=== PATIENT | male | born 1955 | race Caucasian/White ===

== ENCOUNTER 2025-01-05 13:08 | Outpatient (CLI) | payer OTHER, SELFPAY ==
--- NOTE | ~2025-01-05 | XR_ITS ---
XR shoulder LT min 2V 01/05/2025 13:38 Indication: Left shoulder pain Procedure: 4 views left shoulder Comparison: No prior studies for comparison. Findings: There is mild polyarticular osteoarthritis. There is evidence of calcific tendinopathy. No fracture, subluxation or dislocation. No soft tissue abnormality. No foreign body. Impression: 1: Mild polyarticular osteoarthritis with calcific tendinopathy. Reviewed, dictated and finalized at location B. Impression: 1: Mild polyarticular osteoarthritis with calcific tendinopathy.
--- OUTSIDE RECORDS SUMMARY | 2025-01-05 13:14 | XMS_ITS | Clinical Summary ---
Author Organization [facility] Address [address] [place] [address] Care Team Providers Care Director [employer]eron[employer] Name Role Phone Neal So MD Primary Care Provider [phone] Source Comments [facility],non-owned Affiliates and Associated Physician Practices is amultiple site organization consisting of ambulatory clinics and hospital sitesin [place], [place], [place] and [place]. This disclosure is being madepursuant to the Care Everywhere program and may not contain all information available regarding this patient. Last updated 18.[facility] [employer] Allergies Active Allergy Reactions Criticality Noted Date Comments Penicillins Unknown 03/30/2020 Immunizations Immunization Administration Dates Next Due INFLUENZA VACCINE, QUADR. (F LUZONE; FLULAVAL; FLUARIX; AFLURIA QUADRIVALENT; 6MO+), 0.5 ML (IIV4) 03/30/2020 Social History Tobacco Use Types Packs/Day Years Used Date Smoking Tobacco: Never Assessed Sex and Gender Information Value Date Recorded Sex Assigned at Not on file Legal Sex Male 11:51 AM CDT Gender Identity Male 03/30/2020 11:58 AM CDT Sexual Orientation Not on file Plan of Treatment Health Maintenance Due Date Last Done Comments COLOGUARD (AGES 45-75) - COL ON CA SCREENING 1957 COLON MONITORING 1957 COLONOSCOPY - COLON CA SCREENING 1957 CT COLONOGRAPHY - COLON CA SCREENING 1957 Colorectal Cancer Screening 1957 FIT - COLON CA SCREENING 1957 FLEX SIG - COLON CA SCREENING 1957 LIPID TESTING 1957 HEPATITIS C SCREENING 01/23/1975 DTAP/TDAP/TD VACCINES (1 - Tdap) 01/28/1976 PNEUMOCOCCAL VACCINE 50+ (1 of 1 - PCV) 2007 ZOSTER VACCINE (1 of 2) 2007 COVID-19 VACCINE (1 - 2023-2 5 season) 2024 DEPRESSION SCREENING 06/22/2024 INFLUENZA VACCINE (#1) 2025 03/30/2020 Respiratory Syncytial Virus (RSV) Vaccine Pt: or over 60 yrs (1 - 1-dose 75+ series) 01/28/2032 HEPATITIS B VACCINE Aged Out No longe r eligible based on patient's age to complete this topic HIB VACCINE Aged Out No longer eligi ble based on patient's age to complete this topic HPV VACCINE Aged Out No longer eligi ble based on patient's age to complete this topic MENINGOCOCCAL (Group B) VACC INE SHARED DECISION-MAKING Aged Out No longer eligibl e based on patient's age to complete this topic MENINGOCOCCAL GROUPS A/C/Y/W VACCINE Aged Out No longer eligible b ased on patient's age to complete [place] [address] [facility] Care Teams Director [employer]eron[employer] Relationship Specialty Start Date End Date Neal So MD PCP - General Internal Medicine 03/30/20
--- OUTSIDE RECORDS SUMMARY | 2025-01-05 13:14 | XMS_ITS | Encounter Summary ---
Author Organization [facility] Address [address] [place] [address] Care Team Providers Care Paper Control Clerk Name Role Phone Neal So MD Primary Care Provider [phone] Tamica Santana RN Unavailable Unavaila ble Reason for Referral * Consultation (Routine) - Pending Review Specialty Diagnoses / Procedures Referred By Contac t Referred To Contact Orthopedic Surgery Diagnoses Acute pain of left shoulder Skyla Millan NP [address] [address] Phone: tel: fax: External Order Referral ID Status Reason Start Date Expiration Date Visits Requested Visits Authorized [id number] Pending Review Specialty Services Required 01/05/2025 02/04/2026 1 1 Question Answer Please select the performing region: External Order [[id number]] # of visits: 1 * Diagnostic Imaging (Routine) - Pending Review Specialty Diagnoses / Procedures Referred By Contac t Referred To Contact Diagnoses Acute pain of left shoulder Procedures XR Shoulder Left 2 or More Views Skyla Millan NP [address] [address] Phone: tel: fax: [address] [phone] Referral ID Status Reason Start Date Expiration Date V isits Requested Visits Authorized [id number] Pending Review 01/05/2025 02/04/2026 1 1 Reason for Visit * Reason Comments Shoulder Pain C/o pain for 3-4 day s. Encounter Details Date Type Department Care Team (Late st Contact Info) Description 01/05/2025 9:15 AM CDT Office Visit [facility] [address] [place] [id number] Skyla Millan NP [address] [facility] [address] [place], [place] [id number] Acute pain of left shoulder (Primary Dx); Type 2 diabetes mellitus without complication, without long-term current use of insulin (HCC); Essential hypertension Social History Tobacco Use Types Packs/Day Years Used Date Smoking Tobacco: Former Cigarettes Q uit: 1995 Smokeless Tobacco: Never Alcohol Use Standard Drinks/Week Comments Yes 0 (1 standard drink = 0.6 oz pur e alcohol) AUDIT-C Answer Date Recorded Q1: How often do you have a drink containing alc ohol? Monthly or less 09/12/2022 Q2: How many drinks containi ng alcohol do you have on a typical day when you are drinking? 1 or 2 09/12/2022 Frequency of Binge Drinking Not on file 08/21 PHQ-2 Answer Date Recorded PHQ-2 Total Score 0 08/06/2022 Personal Safety Answer Date Recorded Have you ever been in or are you currently in a harmful physical or emotional relationship or is someone making you feel afraid or unsafe? 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 Gender Identity Not on file Sexual Orientation Not on file documented as of this encounter Last Filed Vital Signs Vital Sign Reading Time Taken Comments Blood Pressure 134/78 01/05/2025 8:24 AM CDT Pulse 81 01/05/2025 8:24 AM CDT Temperature - - Respiratory Rate - - Oxygen Saturation 98% 01/05/2025 8:24 AM CDT Inhaled Oxygen Concentration - - Weight 98.4 kg (217 lb) 01/05/2025 8:24 AM CDT Height 180.3 cm (5' 11) 01/05/2025 8:24 AM CDT Body Mass Index 30.27 01/05/2025 8:24 AM CDT documented in this encounter Patient Instructions * Patient Instructions* Johanne Chavez - 01/05/2025 9:15 AM CDT [facility]: [phone] documented in this encounter Plan of Treatment Scheduled Orders Name Type Priority Associated Diagnoses Orde r Schedule XR Shoulder Left 2 or More Views Imaging Schedule Routine, Read Routine (OP Routine) Acute pain of left shoulder Expected: 01/05/2025, Expires: 01/05/2026 Scheduled Procedures Name Priority Associated Diagnoses Date/Ti me COLONOSCOPY Low hemoglobin and low hematocrit Screening for malignant neoplasm of colon declined ESOPHAGOGASTRODUODENOSCOPY Low hemoglobin and low hematocrit Screening for malignant neoplasm of colon declined Scheduled Referrals Name Type Priority Associated Diagnoses Order Schedule Ambulatory referral to Orthopedic Shoulder Outpatient Referral Routine Acute pain of left shoulder 1 Occurrences starting 01/05/2025 until 01/05/2026 documented as of this encounter Visit Diagnoses Diagnosis Acute pain of left shoulder- Primary Type 2 diabetes mellitus without complication, without long-term current use of insulin (HCC) Essential hypertension Unspecified essential hypertension documented in this encounter Care Teams Paper Control Clerk Relationship Specialty Start Date End Date Neal So MD PCP - General Internal Medicine 06/29/20 Tamica Santana, wellness manager Failure Coordinator 04/20/24 documented as of this encounter
--- OUTSIDE RECORDS SUMMARY | 2025-01-05 13:14 | XMS_ITS | Referral Summary ---
Author Organization [facility] [address] Address [address] [place] [address] Care Team Providers Care Debt Collection Specialist Name Role Phone Neal So MD Primary Care Provider [phone] Tamica Santana RN Unavailable Unavaila ble Encounters Date Type Department Care Team Description 01/05/2025 9:15 AM CDT Office Visit [facility] [address] [facility] [address] [facility] [address] [place] [id number] Skyla Millan NP Acute pain of left shoulder (Primary Dx); Type 2 diabetes mellitus without complication, without long-term current use of insulin (HCC); Essential hypertension 10/24/2024 11:00 AM CDT Office Visit [facility] [address] [facility] [address] [place] [address] [place] [address] Devonte Story NP PAD (peripheral artery disease) (Primary Dx); Bilateral carotid bruits; Renal artery stenosis 10/24/2024 7:30 AM CDT - 10/24/2024 11:59 PM CDT Hospital Encounter [facility] [place] [address] Renal artery stenosis Discharge Disposition: Discharge to home or self care 10/24/2024 10:15 AM CDT Ancillary Procedure [facility] [address] [facility] [address] [place] [address] [place] [address] Bilateral carotid bruits; Atherosclerosis of [place] arteries of extremities with intermittent claudication, bilateral legs from Last 3 Months Allergies Active Allergy Reactions Criticality Noted Date Comments Penicillin V Potassium Rash Medium 04/01/2019 Penicillins Rash,Unknown Medium 03/26/2020 Medications aspirin 81 mg enteric coated tablet Take by mouth daily 04/01/20 19 Active UNABLE TO FIND Iron infusions unsure frequency Active omeprazole (PriLOSEC) 20 mg capsule TAKE 1 CAPSULE BY MOUTH EVERY DAY 90 capsule 1 05/28/20 23 Active metFORMIN (GLUCOPHAGE) 500 mg tablet TAKE 2 TABLETS BY MOUTH TWICE A DAY WITH FOOD 360 tablet 3 02/08/20 24 Active hydroCHLOROthi azide (HYDRODIURIL) 25 mg tablet TAKE 1 TABLET (25 MG TOTAL) BY MOUTH DAILY. 90 tablet 3 02/08/20 24 Active ALPRAZolam (XANAX) 0.25 mg tabletIndicati ons:anxiety One Tablet every day prn anxiety 30 tablet 04/25/20 24 Active valsartan (DIOVAN) 160 mg tablet Take 1 tablet (160 mg total) by mouth daily 90 tablet 3 05/05/20 24 Active blood-glucose meter kit Use to test blood glucose once daily 1 kit 05/13/20 24 Active lancets misc Use to test blood glucose once daily 100 each 3 05/13/20 24 Active blood glucose diagnostic (glucose blood) strip Use to test blood glucose once daily 100 each 3 05/13/20 24 025 Active cilostazoL (PLETAL) 50 mg tablet TAKE 1 TABLET BY MOUTH TWICE A DAY 180 tablet 3 06/06/20 24 Active atorvastatin (LIPITOR) 20 mg tablet TAKE 1 TABLET BY MOUTH EVERY DAY 90 tablet 2 06/06/20 24 Active amLODIPine (NORVASC) 10 mg tablet TAKE 1 TABLET BY MOUTH EVERY DAY 90 tablet 2 11/29/19 25 Active semaglutide (Ozempic) 1 mg/dose (4 mg/3 mL) pen injector injection INJECT 1 MG UNDER THE SKIN EVERY 7 DAYS 3 mL 1 12/23/19 25 Active semaglutide (Ozempic) 1 mg/dose (4 mg/3 mL) pen injector injection INJECT 1 MG UNDER THE SKIN EVERY 7 DAYS 9 mL 1 07/16/19 25 025 Discontinued Active Problems Problem Noted Date Diagnosed Date Angiodysplasia of intestinal tract 10/02/2023 Iron deficiency anemia 12/12/2022 Renal artery stenosis 09/01/2022 Atherosclerosis of artery of both lower extremit ies 09/01/2022 Bilateral carotid bruits 09/01/2022 Murmur 08/06/2022 Essential hypertension 07/26/2020 Assessment & Plan (07/26/2020 8:43 AM MOTHER'S HELPER): Blood pressure at target by my exam will continue present Rx Type 2 diabetes mellitus wit hout complication, without long-term current use of insulin 07/26/2020 Assessment & Plan (07/26/2020 8:43 AM MOTHER'S HELPER): Blood sugar seems to be doing well will check A1c Mixed hyperlipidemia 07/26/2020 Assessment & Plan (07/26/2020 8:43 AM MOTHER'S HELPER): Most recent lipid panel was excellent. Continue present Rx PAD (peripheral artery disease) 07/26/2020 Assessment & Plan (07/26/2020 8:43 AM MOTHER'S HELPER): On statins and anti-platelet therapy. Blood pressure and cholesterol are at target. Will have him undergo these studies as outlined by his Cardiology Low testosterone 07/26/2020 Assessment & Plan (07/26/2020 8:43 AM MOTHER'S HELPER): Check testosterone level, PSA, CBC. Immunizations Immunization Administration Dates Next Due Influenza, Quad, Adjuvantated, Intramuscular Influenza, Quadrivalent, Martha l Culture-based MDCK, Preservative Free, Antibiotic Free, Intramuscular 04/17/2022 Influenza, Quadrivalent, Spl it, Preservative Free, Intramuscular 03/30/2020,03/30/2020 Influenza, Trivalent, High D ose, Split, Preservative Free, Intramuscular 04/18/2024 Moderna SARS-CoV-2 Monovalent Vaccination (12+ Y RS) 07/19/2020 ZOSTER Recombinant 07/16/2022,05/13/2022 Social History Tobacco Use Types Packs/Day Years Used Date Smoking Tobacco: Former Cigarettes Q uit: 1995 Smokeless Tobacco: Never Tobacco Cessation:Counseling Given: Not Answered Alcohol Use Standard Drinks/Week Comments Yes 0 [...] on file Legal Sex Male 1:19 PM MOTHER'S HELPER Gender Identity Not on file Sexual Orientation Not on file Last Filed Vital Signs Vital Sign Reading Time Taken Comments Blood Pressure 134/78 01/05/2025 8:24 AM CDT Pulse 81 01/05/2025 8:24 AM CDT Temperature 36.5 C (97.7 F) 12/17/2023 9:20 AM CDT Respiratory Rate 18 12/17/2023 9:20 AM CDT Oxygen Saturation 98% 01/05/2025 8:24 AM CDT Inhaled Oxygen Concentration - - Weight 98.4 kg (217 lb) 01/05/2025 8:24 AM CDT Height 180.3 cm (5' 11) 01/05/2025 8:24 AM CDT Body Mass Index 30.27 01/05/2025 8:24 AM CDT Plan of Treatment Scheduled Procedures Name Priority Associated Diagnoses Date/Ti me COLONOSCOPY Low hemoglobin and low hematocrit Screening for malignant neoplasm of colon declined ESOPHAGOGASTRODUODENOSCOPY Low hemoglobin and low hematocrit Screening for malignant neoplasm of colon declined Procedures Procedure Name Priority Date/Time Associated Diagnosis Comments US ARTERIAL DOPPLER LOWER EXTREMITY BILATERAL Schedule Routine, Read Routine (OP Routine) 10/24/2024 11:44 AM CDT Atherosclerosis of [place] arteries of extremities with intermittent claudication, bilateral legs US CAROTIDS DUPLEX BILATERAL Schedule Routine, Read Routine (OP Routine) 10/24/2024 11:44 AM CDT Bilateral carotid bruits US RENAL LIMITED W COMPLETE RENAL DOPPLER (C) Schedule Routine, Read Routine (OP Routine) 10/24/2024 9:34 AM CDT Renal artery stenosis COMPREHENSIVE METABOLIC PANEL Routine 07/12/2024 7:25 AM MOTHER'S HELPER Type 2 diabetes mellitus without complication, without long-term current use of insulin (HCC) HEMOGLOBIN A1C Routine 07/12/2024 7:25 AM MOTHER'S HELPER Type 2 diabetes mellitus without complication, without long-term current use of insulin (HCC) ALBUMIN CREATININE RATIO, URINE Routine 07/12/2024 7:25 AM MOTHER'S HELPER Type 2 diabetes mellitus without complication, without long-term current use of insulin (HCC) LIPID PANEL Routine 12/30/2023 10:16 AM CDT Mixed hyperlipidemia PSA SCREEN Routine 12/30/2023 10:16 AM CDT Prostate cancer screening COLONOSCOPY 09/12/2022 4:43 PM CDT from Last 3 Months or Most Recently Relevant to Health Maintenance Results * US Carotids Duplex Bilateral (10/24/2024 11:44 AM CDT) Anatomical Region Laterality Modality Vascular Bilateral Ultrasound 10/24/2024 9:58 AM CDT Narrative 10/24/2024 7:[address] [facility] - Department of Vascular Surgery, Vascular Laboratory [address] [place] [address] Carotid Duplex Ultrasound Report Patient Name: ERNST LIMA : 1955 (69y 8m) Study Date: 10/24/2024 9:58:36 AM Gender: M Tech: IA Location: [facility] Ref Provider: DEVONTE STORY Quality: Adequate Order Provider: DEVONTE STORY PROCEDURES: Carotid Report: Carotid duplex examination of the extracranial arteries was performed using 2D, color and spectral Doppler. INDICATIONS: R09.89 Other specified symptoms and signs involving the circulatory and respiratory systems. MEASUREMENTS: Right Value Units Left Value Units RT Prox CCA PSV 63 cm/sec LT Prox CCA PSV 70 cm/sec RT Prox CCA EDV 18 cm/sec LT Prox CCA EDV 18 cm/sec RT Distal CCA PSV 66 cm/sec LT Distal CCA PSV 76 cm/sec RT Distal CCA EDV 15 cm/sec LT Distal CCA EDV 16 cm/sec RT Prox ICA PSV 114 cm/sec LT Prox ICA PSV 80 cm/sec RT Prox ICA EDV 31 cm/sec LT Prox ICA EDV 22 cm/sec RT Mid ICA PSV 123 cm/sec LT Mid ICA PSV 97 cm/sec RT Mid ICA EDV 28 cm/sec LT Mid ICA EDV 28 cm/sec RT Distal ICA PSV 79 cm/sec LT Distal ICA PSV 68 cm/sec RT Distal ICA EDV 22 cm/sec LT Distal ICA EDV 28 cm/sec RT ECA Prx PSV 132 cm/sec LT ECA Prx PSV 190 cm/sec RT ICA/CCA 1.87 ratio LT ICA/CCA 1.28 ratio RT VERT PSV 54 cm/sec LT VERT PSV 42 cm/sec FINDINGS: Performing Heat Curer: Caren Wagner RVT. Rt Common Carotid Artery: The plaque in the right CCA appears to be heterogeneous and smooth. Atherosclerotic changes of the right common carotid artery with no hemodynamically significant Doppler findings. Rt Internal Carotid Artery: The plaque in the right internal carotid artery appears to be heterogeneous, calcified and smooth. Atherosclerotic changes of the right internal carotid artery without hemodynamically significant Doppler findings. <50% stenosis. Rt External Carotid Artery: Patent right external carotid artery with evidence of atherosclerotic disease present. Rt Vertebral Artery: The right vertebral artery is patent with antegrade flow. Lt Common Carotid Artery: The plaque in the left CCA appears to be heterogeneous and smooth. Atherosclerotic changes of the left common carotid artery with no hemodynamically significant Doppler findings. Lt Internal Carotid Artery: The plaque in the left internal carotid artery appears to be heterogeneous, calcified and smooth. Atherosclerotic changes of the left internal carotid artery without hemodynamically significant Doppler findings. <50% stenosis. Lt External Carotid Artery: Patent left external carotid artery with evidence of atherosclerotic disease present. Lt Vertebral Artery: The left vertebral artery is patent with antegrade flow. CONCLUSIONS: 1. The right internal carotid artery disease is consistent with a less than 50% stenosis. 2. The left internal carotid artery disease is consistent with a less than 50% stenosis. 3. No evidence of hemodynamically significant stenosis in the common carotid artery bilaterally. 4. Normal, antegrade flow is noted in bilateral vertebral arteries. HISTORY: Bruit. Hypertension, Diabetes mellitus. PREVIOUS STUDIES: Previous carotid ultrasound on 11-02-23, <50 bilaterally. DISCLAIMER: The study images and the final report will be retained in the patient chart by the Vascular Laboratory for the legally required time period. This chart constitutes the legal record of any testing performed. ATTESTATION: I have reviewed and interpreted the pertinent images and measurements of this study. I attest to the conclusions in the final report that is provided above. Electronically Signed By: Kailash Islas MD FACS 10/24/2024 7:21:51 PM CDT Procedure Note Kailash Islas MD - 10/24/2024 [facility] - Department of Vascular Surgery,Vascular Laboratory [address] [place] [id number] Carotid Duplex Ultrasound Report Patient Name: ERNST LIMA : 1955 (69y 8m) Study Date: 10/24/2024 9:58:36 AM Gender: M Tech: IA Location: [facility] Ref Provider: DEVONTE STORY Quality: Adequate Order Provider: DEVONTE STORY PROCEDURES: Carotid Report: Carotid duplex examination of the extracranial arterieswas performed using 2D, color and spectral Doppler. INDICATIONS: R09.89 Other specified symptoms and signs involving the circulatory andrespiratory systems. MEASUREMENTS: Right Value Units Left Value Units RT Prox CCA PSV 63 cm/sec LT Prox CCA PSV 70 cm/sec RT Prox CCA EDV 18 cm/sec LT Prox CCA EDV 18 cm/sec RT Distal CCA PSV 66 cm/sec LT Distal CCA PSV 76 cm/sec RT Distal CCA EDV 15 cm/sec LT Distal CCA EDV 16 cm/sec RT Prox ICA PSV 114 cm/sec LT Prox ICA PSV 80 cm/sec RT Prox ICA EDV 31 cm/sec LT Prox ICA EDV 22 cm/sec RT Mid ICA PSV 123 cm/sec LT Mid ICA PSV 97 cm/sec RT Mid ICA EDV 28 cm/sec LT Mid ICA EDV 28 cm/sec RT Distal ICA PSV 79 cm/sec LT Distal ICA PSV 68 cm/sec RT Distal ICA EDV 22 cm/sec LT Distal ICA EDV 28 cm/sec RT ECA Prx PSV 132 cm/sec LT ECA Prx PSV 190 cm/sec RT ICA/CCA 1.87 ratio LT ICA/CCA 1.28 ratio RT VERT PSV 54 cm/sec LT VERT PSV 42 cm/sec FINDINGS: Performing Heat Curer: Caren Wagner RVT. Rt Common Carotid Artery: The plaque in the right CCA appears to beheterogeneous and smooth. Atherosclerotic changes of the right common carotid artery with no hemodynamically significant Doppler findings. Rt Internal Carotid Artery: The plaque in the right internal carotidartery appears to be heterogeneous, calcified and smooth. Atherosclerotic changes of the rightinternal carotid artery without hemodynamically significant Doppler findings. <50%stenosis. Rt External Carotid Artery: Patent right external carotid artery withevidence of atherosclerotic disease present. Rt Vertebral Artery: The right vertebral artery is patent with antegradeflow. Lt Common Carotid Artery: The plaque in the left CCA appears to beheterogeneous and smooth. Atherosclerotic changes of the left common carotid artery with nohemodynamically significant Doppler findings. Lt Internal Carotid Artery: The plaque in the left internal carotid arteryappears to be heterogeneous, calcified and smooth. Atherosclerotic changes of the leftinternal carotid artery without hemodynamically significant Doppler findings. <50%stenosis. Lt External Carotid Artery: Patent left external carotid artery withevidence of atherosclerotic disease present. Lt Vertebral Artery: The left vertebral artery is patent with antegradeflow. CONCLUSIONS: 1. The right internal carotid artery disease is consistent with a lessthan 50% stenosis. 2. The left internal carotid artery disease is consistent with a less than50% stenosis. 3. No evidence of hemodynamically significant stenosis in the commoncarotid artery bilaterally. 4. Normal, antegrade flow is noted in bilateral vertebral arteries. HISTORY: Bruit. Hypertension, Diabetes mellitus. PREVIOUS STUDIES: Previous carotid ultrasound on 11-02-23, <50 bilaterally. DISCLAIMER: The study images and the final report will be retained in the patientchart by the Vascular Laboratory for the legally required time period. This chartconstitutes the legal record of any testing performed. ATTESTATION: I have reviewed and interpreted the pertinent images and measurements ofthis study. I attest to the conclusions in the final report that is provided above. Electronically Signed By: Kailash Islas MD, FACS 10/24/2024 7:21:51 PM CDT us Devonte Story NP IMG US PROCEDURES Final Result * US Arterial Doppler Lower Extremity Bilateral (10/24/2024 11:44 AM CDT) Anatomical Region Laterality Modality Vascular Bilateral Ultrasound 10/24/2024 10:2 1 AM CDT Narrative 10/24/2024 7:19 PM CDT [facility] - Department of Vascular Surgery, Vascular Laboratory [address] [place] [address] Lower Extremity Arterial Doppler Report Patient Name: ERNST LIMA : 1955 Study Date: 10/24/2024 10:21:00 AM Gender: M Tech: Caren Wagner RVT Location: [facility] Provider: DEVONTE STORY Quality: Adequate Order Provider: DEVONTE STORY PROCEDURES: Arterial Report: Bilateral lower extremity arterial Doppler exam at rest. INDICATIONS: I70.213 Atherosclerosis of [place] arteries of extremities with intermittent claudication, bilateral legs. MEASUREMENTS: Right Value Units Left Value Units Rt Brachial Pressure 153 mmHg Lt Brachial Pressure 153 mmHg Rt COPS Pressure 127 mmHg Lt COPS Pressure 138 mmHg Rt DPA Pressure 122 mmHg Lt DPA Pressure 138 mmHg Rt 1st Digit Pressure 118 mmHg Lt 1st Digit Pressure 110 mmHg Rt PT COLIN Resting 0.83 Lt PT COLIN Resting 0.9 Rt AT COLIN Resting 0.8 Lt AT COLIN Resting 0.9 Rt Digit/Arm Index 0.77 Lt Digit/Arm Index 0.72 Right Value Units Left Value Units FINDINGS: Performing Heat Curer: Caren Wagner RVT. Right All Levels: The right common femoral, popliteal, posterior tibial and anterior tibial artery waveforms are multiphasic. Left All Levels: The left common femoral, popliteal, posterior tibial and anterior tibial artery waveforms are multiphasic. Right Digits: Normal right digit pressure and waveform. Left Digits: Normal left digit pressure and waveform. CONCLUSIONS: 1. The above listed right Ankle/Brachial Index at rest is consistent with moderate peripheral arterial disease - claudication (for reference, claudication range is 0.50 -0.89). 2. The above listed left Ankle/Brachial Index at rest is within normal limits (for reference, normal resting COLIN is 0.90 - 1.4; COLIN >1.4 due to non-compressible arteries is not diagnostic). 3. Bilateral Digit/Arm Indices are within normal limits (for reference, normal DEMOND is >0.6). 4. The left lower extremity arterial Doppler reveals multiphasic waveforms in all distributions above. No evidence of lower extremity arterial occlusive disease at rest on the left. 5. Unable to determine level of disease on the right lower extremity. HISTORY: Hypertension, Diabetes mellitus. PREVIOUS STUDIES: Previous study on 11-02-23 RT: 0.92 LT: 1.15. DISCLAIMER: The study images and the final report will be retained in the patient chart by the Vascular Laboratory for the legally required time period. This chart constitutes the legal record of any testing performed. ATTESTATION: I have reviewed and interpreted the pertinent images and measurements of this study. I attest to the conclusions in the final report that is provided above. Electronically Signed By: Kailash Islas MD FACS 10/24/2024 7:19:20 PM CDT Procedure Note Kailash Islas MD - 10/24/2024 [facility] - Department of Vascular Surgery,Vascular Laboratory [address] [place] [address] Lower Extremity Arterial Doppler Report Patient Name: ERNST LIMA : 1955 Study Date: 10/24/2024 10:21:00 AM Gender: M Tech: Caren Wagner [place] Location: [facility] Ref Provider: DEVONTE STORY Quality: Adequate Order Provider: DEVONTE STORY PROCEDURES: Arterial Report: Bilateral lower extremity arterial Doppler exam at rest. INDICATIONS: I70.213 Atherosclerosis of [place] arteries of extremities withintermittent claudication, bilateral legs. MEASUREMENTS: Right Value Units Left Value Units Rt Brachial Pressure 153 mmHg Lt Brachial Pressure 153 mmHg Rt COPS Pressure 127 mmHg Lt COPS Pressure 138 mmHg Rt DPA Pressure 122 mmHg Lt DPA Pressure 138 mmHg Rt 1st Digit Pressure 118 mmHg Lt 1st Digit Pressure 110 mmHg Rt PT COLIN Resting 0.83 Lt PT COLIN Resting 0.9 Rt AT COLIN Resting 0.8 Lt AT COLIN Resting 0.9 Rt Digit/Arm Index 0.77 Lt Digit/Arm Index 0.72 Right Value Units Left Value Units FINDINGS: Performing Heat Curer: Caren Wagner RVT. Right All Levels: The right common femoral, popliteal, posterior tibial and anterior tibialartery waveforms are multiphasic. Left All Levels: The left common femoral, popliteal, posterior tibial and anterior tibialartery waveforms are multiphasic. Right Digits: Normal right digit pressure and waveform. Left Digits: Normal left digit pressure and waveform. CONCLUSIONS: 1. The above listed right Ankle/Brachial Index at rest is consistent withmoderate peripheral arterial disease - claudication (for reference, claudicationrange is 0.50 -0.89). 2. The above listed left Ankle/Brachial Index at rest is within normallimits (for reference, normal resting COLIN is 0.90 - 1.4; COLIN >1.4 due tonon-compressible arteries is not diagnostic). 3. Bilateral Digit/Arm Indices are within normal limits (for reference,normal DEMOND is >0.6). 4. The left lower extremity arterial Doppler reveals multiphasic waveformsin all distributions above. No evidence of lower extremity arterial occlusivedisease at rest on the left. 5. Unable to determine level of disease on the right lower extremity. HISTORY: Hypertension, Diabetes mellitus. PREVIOUS STUDIES: Previous study on 11-02-23 RT: 0.92 LT: 1.15. DISCLAIMER: The study images and the final report will be retained in the patientchart by the Vascular Laboratory for the legally required time period. This chartconstitutes the legal record of any testing performed. ATTESTATION: I have reviewed and interpreted the pertinent images and measurements ofthis study. I attest to the conclusions in the final report that is provided above. Electronically Signed By: Kailash Islas MD [facility] 10/24/2024 7:19:20 PM CDT us Devonte Story THEATRICAL TROUPER IMG US PROCEDURES Final Result * US Renal Limited W Complete Renal Doppler (C) (10/24/2024 9:34 AM CDT) Anatomical Region Laterality Modality Kidney N/A Ultrasound 10/24/2024 9:41 AM CDT Impressions 10/24/2024 10:16 AM CDT 1. Elevated left renal artery velocity is noted on 2 of the last 3 Doppler examinations, consistent with renal artery stenosis. 2. Normal kidneys. No hydronephrosis. Dictated by: Raisa Becerril MD, MPH The radiology attending physician has personally reviewed this study, and had reviewed and/or edited this written report and agrees with it. Electronically signed by: Gavin Iglesias M.D. Narrative 10/24/2024 10:16 AM CDT EXAMINATION: 1. LIMITED RENAL SONOGRAM 2. RENAL DOPPLER (SONYA) HISTORY: 69-year-old male with history of left renal artery stenosis. COMPARISON: Multiple ultrasounds including 11/02/2023, 09/01/2022 and 09/12/2021 FINDINGS: COMPLETE RENAL SONOGRAM: Kidneys: The echogenicity of both kidneys is normal. The kidneys are normal in size. The right kidney measures 13.2 cm in length, and the left, 12.5 cm in length. There is no hydronephrosis in either kidney. Bladder: The urinary bladder is normal RENAL DOPPLER: Color Doppler and spectral analysis were used to evaluate the renal vasculature. No focal flow abnormalities were seen in the renal arteries on color Doppler. The peak systolic velocities at the origins of the right and left renal arteries and aorta were 99 cm/sec, 251 cm/sec, and 79 cm/sec, respectively. The absolute velocity of the left renal artery is elevated. The visualized portions of the right and left renal veins are patent. Procedure Note Gavin Iglesias MD - 10/24/2024 EXAMINATION: 1. LIMITED RENAL SONOGRAM 2. RENAL DOPPLER (SONYA) HISTORY: 69-year-old male with history of left renal artery stenosis. COMPARISON: Multiple ultrasounds including 11/02/2023, 09/01/2022 and 09/12/2021 FINDINGS: COMPLETE RENAL SONOGRAM: Kidneys: The echogenicity of both kidneys is normal. The kidneys are normal in size. The right kidney measures 13.2 cm in length, and the left, 12.5 cm in length. There is no hydronephrosis in either kidney. Bladder: The urinary bladder is normal RENAL DOPPLER: Color Doppler and spectral analysis were used to evaluate the renal vasculature. No focal flow abnormalities were seen in the renal arteries on color Doppler. The peak systolic velocities at the origins of the right and left renal arteries and aorta were 99 cm/sec, 251 cm/sec, and 79 cm/sec, respectively. The absolute velocity of the left renal artery is elevated. The visualized portions of the right and left renal veins are patent. IMPRESSION: 1. Elevated left renal artery velocity is noted on 2 of the last 3 Doppler examinations, consistent with renal artery stenosis. 2. Normal kidneys. No hydronephrosis. Dictated by: Raisa Becerril MD, MPH The radiology attending physician has personally reviewed this study, and had reviewed and/or edited this written report and agrees with it. Electronically signed by: Gavin Iglesias M.D. Devonte Story NP IMG US PROCEDURES Final Result * Albumin Creatinine Ratio, Urine (07/12/2024 7:25 AM MOTHER'S HELPER) Creatinine, ur 113 20 - 320 mg/dL [facility] Microalbumin, ur 1.3 See Note: mg/dL [facility] Comment: Reference Range: Reference Range Not established Microalbumin/creat ratio 12 <30 mg/g creat [facility] Comment: The ADA defines abnormalities in albumin excretion as follows: Albuminuria Category Result (mg/g creatinine) Normal to Mildly increased <30 Moderately increased 30-299 Severely increased > OR = 300 The ADA recommends that at least two of three specimens collected within a 3-6 month period be abnormal before considering a patient to be within a diagnostic category. Urine 07/12/2024 7:25 AM MOTHER'S HELPER 07/12/2024 7:25 AM MOTHER'S HELPER Skyla Millan NP LAB URINE ORDERABLES Final Re sult [facility] [address] [place] [address] * (ABNORMAL) Hemoglobin A1c (07/12/2024 7:25 AM MOTHER'S HELPER) Hgb A1C 6.7(H) <5.7 % of total Hgb [facility] Comment: For someone without known diabetes, a hemoglobin A1c value of 6.5% or greater indicates that they may have diabetes and this should be confirmed with a follow-up test. For someone with known diabetes, a value <7% indicates that their diabetes is well controlled and a value greater than or equal to 7% indicates suboptimal control. A1c targets should be individualized based on duration of diabetes, age, comorbid conditions, and other considerations. Currently, no consensus exists regarding use of hemoglobin A1c for diagnosis of diabetes for children. Blood 07/12/2024 7:25 AM MOTHER'S HELPER 07/12/2024 7:25 AM MOTHER'S HELPER us Skyla Millan NP LAB BLOOD ORDERABLES Final Re sult [facility] [address] [place] [address] * (ABNORMAL) Comprehensive metabolic panel (07/12/2024 7:25 AM MOTHER'S HELPER) Glucose 137(H) 65 - 99 mg/dL [facility] Comment: Fasting reference interval For someone without known diabetes, a glucose value >125 mg/dL indicates that they may have diabetes and this should be confirmed with a follow-up test. BUN 11 7 - 25 mg/dL [facility] Creatinine 0.77 0.70 - 1.35 mg/dL [facility] eGFR 98 > OR = 60 mL/min/1.7 3m2 [facility] BUN/creat ratio SEE NOTE: 6 - 22 (calc) [facility] Comment: Not Reported: BUN and Creatinine are within reference range. Sodium 134(L) 135 - 146 mmol/L [facility] Potassium, pl 3.9 3.5 - 5.3 mmol/L [facility] Chloride 95(L) 98 - 110 mmol/L [facility] CO2 28 20 - 32 mmol/L [facility] Calcium 9.3 8.6 - 10.3 mg/dL [facility] Protein, sr 7.4 6.1 - 8.1 g/dL [facility] Albumin 4.9 3.6 - 5.1 g/dL [facility] GLOBULIN 2.5 1.9 - 3.7 g/dL (calc) [facility] Alb/glob ratio 2.0 1.0 - 2.5 (calc) [facility] Bilirubin, total 0.4 0.2 - 1.2 mg/dL [facility] Alk phos 84 35 - 144 U/L [facility] AST 22 10 - 35 U/L [facility] ALT (SGPT) 30 9 - 46 U/L [facility] Blood 07/12/2024 7:25 AM MOTHER'S HELPER 07/12/2024 7:25 AM MOTHER'S HELPER Skyla Millan THEATRICAL TROUPER LAB BLOOD ORDERABLES Final Re sult Performing Organization Address [facility] Co de Phone Number [facility] [address] [place] [address] * PSA screen (12/30/2023 10:16 AM CDT) PSA 0.56 < OR = 4.00 ng/mL [facility] Comment: The total PSA value from this assay system is standardized against the WHO standard. The test result will be approximately 20% lower when compared to the equimolar-standardized total PSA (Nadia Marietta). Comparison of serial PSA results should be interpreted with this fact in mind. This test was performed using the Siemens chemiluminescent method. Values obtained from different assay methods cannot be used interchangeably. PSA levels, regardless of value, should not be interpreted as absolute evidence of the presence or absence of disease. Blood 12/30/2023 10:1 6 AM CDT 12/30/2023 10:18 AM CDT Narrative [facility] - 12/31/2023 8:03 AM CDT FASTING:YES FASTING: YES us Skyla Millan THEATRICAL TROUPER LAB BLOOD ORDERABLES Final Re sult Performing Organization Address [facility] Co de Phone Number [facility] [address] [place] [address] * Lipid panel (12/30/2023 10:16 AM CDT) Cholesterol 100 <200 mg/dL [facility] HDL 41 > OR = 40 mg/dL [facility] Triglycerides 92 <150 mg/dL [facility] LDL 41 mg/dL (calc) [facility] Comment: Reference range: <100 Desirable range <100 mg/dL for primary prevention; <70 mg/dL for patients with CHD or diabetic patients with > or = 2 CHD risk factors. LDL-C is now calculated using the Emmanuel calculation, which is a validated novel method providing better accuracy than the Friedewald equation in the estimation of LDL-C. Tab NATION et al. PAPA. 2013;310(51): 8212-1383 (http://education.Hangar Seven/faq/PKX655) Chol/HDL ratio 2.4 <5.0 (calc) [facility] Non-HDL, (LDL+VLDL) 59 <130 mg/dL (calc) [facility] Comment: For patients with diabetes plus 1 major ASCVD risk factor, treating to a non-HDL-C goal of <100 mg/dL (LDL-C of <70 mg/dL) is considered a therapeutic option. Blood 12/30/2023 10:1 6 AM CDT 12/30/2023 10:18 AM CDT Narrative [facility] - 12/31/2023 8:03 AM CDT FASTING:YES FASTING: YES us Skyla Millan THEATRICAL TROUPER LAB BLOOD ORDERABLES Final Re sult [facility] [address] [facility] [place] [address] * COLONOSCOPY (09/12/2022 4:43 PM CDT) Anatomical Region Laterality Modality Other Narrative Procedure Note Rafa Enriquez MD - 09/12/2022 4:43 PM CDT [facility] Patient Name: Ernst Lima Procedure Date: 09/12/2022 4:43 PM Date of : 1955 Admit Type: Outpatient Age: 67 Gender: Male Attending MD: Rafa Enriquez M.D. Room: [facility] ENDOSCOPY ROOM 8 Note Status: Finalized Procedure: Colonoscopy Indications: Iron deficiency anemia Referring MD: ALONDRA Mantilla Providers: Rafa Enriquez M.D. Medicines: See the Anesthesia note for documentation of the administered medications Complications: No immediate complications. Estimated Blood Loss: Estimated blood loss: none. Procedure: Pre-Anesthesia Assessment: - After reviewing the risks and benefits, thepatient was deemed in satisfactory condition to undergo the procedure. - Immediately prior to administration ofmedications, the patient was re-assessed for adequacy to receive sedatives. - The risks and benefits of the procedure and the sedation options and risks were discussed with the patient. All questions were answered and informed consent was obtained. The benefits, risks and alternatives of theprocedure and sedation were discussed and informed consentwas obtained. All questions were answered. Please referto the signed informed consent document in the medical record. The scope was passed under direct vision.The [id number] endoscope was introduced through the anus and advanced to the cecum, identified by appendiceal orifice and ileocecal valve. The colonoscopy was somewhat difficult due tosignificant looping. Successful completion of the procedure was aided by using manual pressure. The quality of the bowel preparation was good. The ileocecal valve, appendiceal orifice, and rectum were photographed.The bowel preparation used was GoLYTELY via split dose instruction. Findings: Hemorrhoids were found on perianal exam. A 3 mm polyp was found in the recto-sigmoid colon. The polyp was sessile. The polyp was removed with a cold biopsy forceps. Resectionand retrieval were complete. Multiple small-mouthed diverticula were found in the sigmoid colon. Tattoo visualized at 30cm scope insertion, likely from a prior polypectomy site. No residual polyp was visualized in this area. The colon (entire examined portion) appeared otherwise normal. Non-bleeding internal hemorrhoids were found during retroflexion. The hemorrhoids were Grade III (internal hemorrhoids that prolapse but require manual reduction). Impression: - Hemorrhoids found on perianal exam. - One 3 mm polyp at the recto-sigmoid colon,removed with a cold biopsy forceps. Resected andretrieved. - Tattoo seen in sigmoid colon, likely from prior polypectomy. No residual polyp or abnormality seenin this area. - The entire examined colon is otherwise normal. - Non-bleeding internal hemorrhoids. Recommendation: - Discharge patient to home (ambulatory). - Resume previous diet. - Continue present medications. - Await pathology results. - Repeat colonoscopy in 7-10 years forsurveillance. Repeat in 7 years if polyp is adenoma. Repeat in 10 years if it is benign. - Return to referring physician as previously scheduled. Electronically signed by Rafa Enriquez MD Rafa Enriquez M.D. 09/12/2022 5:19:01 PM . Number of Addenda: 0 Note Initiated On: 09/12/2022 4:43 PM Recognized by the [employer] for promoting quality in endoscopy us Rafa Enriquez MD ENDOSCOPY PROCEDURES Final Resul t from Last 3 Months or Most Recently Relevant to Health Maintenance Insurance [employer] PPO [employer] ADV[employer]AGE CHOICE PPO Member Subscriber Plan / Payer (Ef fective 2023-Present) Name:Ernst Lima Relation to Subscriber:Self Name:Ernst Lima Payer ID:[id number] ([facility]) Type:MEDICARE RISK OTHER Address: [place] [id number] ADVANTAGE CHOICE PPO * Guarantor: ERNST ILMA Account Type Relation to Patient Date of Phone Billing Address Personal/Family 1955 79 [address] ADVANTAGE CHOICE PPO Advance Directives For more information, please contact: [phone] * Full Code (Latest Code Status on File) Date Activated Date Inactivated Comments 09/12/2022 2:29 PM 09/12/2022 9:57 PM Care Teams Debt Collection Specialist Relationship Specialty Start Date End Date Neal So MD PCP - General Internal Medicine 06/29/20 Tamica Santana, assistant account manager Failure Coordinator 04/20/24
--- OUTSIDE RECORDS SUMMARY | 2025-01-05 13:14 | XMS_ITS | Encounter Summary ---
Author Organization [facility] Healthcare Address [address] [place] [address] Care Team Providers Care Chemist Food Name Role Phone Neal So MD Primary Care Provider [phone] Tamica Santana RN Unavailable Unavaila ble Reason for Visit * Reason Onset Date Comments ready to scheduled 08/14/2022 Encounter Details Date Type Department Care Team (Late st Contact Info) Description 08/14/2022 Telephone [facility] Specialty Services [address] [place] [phone] Miscellaneous, Not In File ready to scheduled Social History Tobacco Use Types Packs/Day Years Used Date Smoking Tobacco: Former Cigarettes Q uit: 1995 Alcohol Use Standard Drinks/Week Comments Yes 0 (1 standard drink = 0.6 oz pur e alcohol) PHQ-2 Answer Date Recorded PHQ-2 Total Score 0 08/06/2022 Sex and Gender Information Value Date Recorded Sex Assigned at Not on file Legal Sex Male 1:19 PM ONLINE SERVICES MANAGER Gender Identity Not on file Sexual Orientation Not on file documented as of this encounter Plan of Treatment Scheduled Procedures Name Priority Associated Diagnoses Date/Ti me COLONOSCOPY Low hemoglobin and low hematocrit Screening for malignant neoplasm of colon declined ESOPHAGOGASTRODUODENOSCOPY Low hemoglobin and low hematocrit Screening for malignant neoplasm of colon declined documented as of this encounter Visit Diagnoses Not on filedocumented in this encounter Care Teams Chemist Food Relationship Specialty Start Date End Date Neal So MD PCP - General Internal Medicine 06/29/20 Tamica Santana, route agent Failure Coordinator 04/20/24 documented as of this encounter
--- OUTSIDE RECORDS SUMMARY | 2025-01-05 13:14 | XMS_ITS | Clinical Summary ---
Author Organization [facility] [address] Address [address] [place] [address] Care Team Providers Care Personal Financial Planner Name Role Phone Neal So MD Primary Care Provider [phone] Tamica Santana RN Unavailable Unavaila ble Allergies Active Allergy Reactions Criticality Noted Date [...] 07/26/2020 Assessment & Plan (07/26/2020 8:43 AM TOURIST CABIN KEEPER): Blood pressure at target by my exam will continue present Rx Type 2 diabetes mellitus wit hout complication, without long-term current use of insulin 07/26/2020 Assessment & Plan (07/26/2020 8:43 AM TOURIST CABIN KEEPER): Blood sugar seems to be doing well will check A1c Mixed hyperlipidemia 07/26/2020 Assessment & Plan (07/26/2020 8:43 AM TOURIST CABIN KEEPER): Most recent lipid panel was excellent. Continue present Rx PAD (peripheral artery disease) 07/26/2020 Assessment & Plan (07/26/2020 8:43 AM TOURIST CABIN KEEPER): On statins and anti-platelet therapy. Blood pressure and cholesterol are at target. Will have him undergo these studies as outlined by his Cardiology Low testosterone 07/26/2020 Assessment & Plan (07/26/2020 8:43 AM TOURIST CABIN KEEPER): Check testosterone level, PSA, CBC. Encounters Date Type Department Care Team Description 01/05/2025 9:15 AM CDT Office Visit [facility] [address] [facility] [address] [place] [id number] Skyla Millan NP Acute pain of left shoulder (Primary Dx); Type 2 diabetes mellitus without complication, without long-term current use of insulin (HCC); Essential hypertension 10/24/2024 11:00 AM CDT Office Visit [facility] Medicine 8th [place] [address] [place] [address] Devonte Story NP PAD (peripheral artery disease) (Primary Dx); Bilateral carotid bruits; Renal artery stenosis 10/24/2024 10:15 AM CDT Ancillary Procedure [facility] at the [facility] [address] [facility] 8th [place] [address] [place] [address] Bilateral carotid bruits; Atherosclerosis of [place] arteries of extremities with intermittent claudication, bilateral legs 10/24/2024 7:30 AM CDT - 10/24/2024 11:59 PM CDT Hospital Encounter [facility] [address] [place] [id number] Renal artery stenosis Discharge Disposition: Discharge to home or self care from Last 3 Months Immunizations Immunization Administration Dates Next Due Influenza, Quad, Adjuvantated, Intramuscular Influenza, Quadrivalent, Martha l Culture-based MDCK, Preservative Free, Antibiotic Free, Intramuscular 04/17/2022 Influenza, Quadrivalent, Spl it, Preservative Free, Intramuscular 03/30/2020,03/30/2020 Influenza, Trivalent, High D ose, Split, Preservative Free, Intramuscular 04/18/2024 Moderna SARS-CoV-2 Monovalent Vaccination (12+ Y RS) 07/19/2020 ZOSTER Recombinant 07/16/2022,05/13/2022 Surgical History Surgery Date Site/Laterality Comments SHOULDER SURGERY CARPAL TUNNEL RELEASE HERNIA REPAIR COLONOSCOPY Medical History Medical History Date Comments Hypertension Hyperlipidemia Diabetes mellitus (HCC) Colon polyp Heart murmur Type 2 diabetes mellitus (HCC) Anemia Family History Medical History Relation Name Comments Diabetes Father Heart attack Father Stroke Father Brain cancer Mother Cancer Mother Lung cancer Mother Relation Name Status Comments Father Mother Social History Tobacco Use Types Packs/Day Years [...] on file Legal Sex Male 1:19 PM TOURIST CABIN KEEPER Gender Identity Not on file Sexual Orientation Not on file Obstetrics History Last Filed Vital Signs Vital Sign Reading [...] Screening for malignant neoplasm of colon declined Health Maintenance Due Date Last Done Comments Hepatitis C Screening 1955 Dilated Eye Exam 1955 Foot Exam 1955 DTaP/Tdap/Td Vaccine (1 - Tdap) 01/28/1968 Hepatitis B Screening 1975 Pneumococcal vaccine 65+ (1 of 2 - PCV) 01/28/1976 Abdominal Aortic Aneurysm (A AA) Screen 2022 Depression Screening 08/06/2023 08/06/2022, 08/06/19 23 Well Visit 65+ 08/06/2023 08/06/2022, 07/26/2020 Fall Risk Assessment 09/13/2023 09/12/2022, 08/06/19 23 Covid-19 Vaccine ( - 2023-2 5 season) 2024 05/08/2023, 12/26/2021, 04/21/2021, Additional history exists Lipid Panel 12/29/2024 12/30/2023, 07/23, 08/12/2021, Additional history exists Hemoglobin A1C 01/09/2025 07/12/2024, 071 , 06/10/2023, Additional history exists Influenza Vaccine (#1) 2025 4, 05/08/2023, 04/17/2022, Additional history exists Albumin Creatinine Ratio, Urine 07/12/2025 5, 06/10/2023 eGFR 07/12/2025 07/12/2024, 12/20, 06/10/2023, Additional history exists Prostate Cancer Screening-PSA 12/29/2025, 08/01/2022, 08/12/2021, Additional history exists Colon Cancer Screening-Colonoscopy 09/12/20322022, 01/24/2020 Zoster Vaccine Completed 07/16/2022, 05/13/2022 Procedures Procedure Name Priority Date/Time Associated Diagnosis Comments US ARTERIAL DOPPLER LOWER EXTREMITY BILATERAL Schedule Routine, Read Routine (OP Routine) 10/24/2024 11:44 AM CDT Atherosclerosis of [place] arteries of extremities with intermittent claudication, bilateral legs US CAROTIDS DUPLEX BILATERAL Schedule Routine, Read Routine (OP Routine) 10/24/2024 11:44 AM CDT Bilateral carotid bruits US RENAL LIMITED W COMPLETE RENAL DOPPLER (C) Schedule Routine, Read Routine (OP Routine) 10/24/2024 9:34 AM CDT Renal artery stenosis COMPREHENSIVE METABOLIC PANEL Routine 07/12/2024 7:25 AM TOURIST CABIN KEEPER Type 2 diabetes mellitus without complication, without long-term current use of insulin (HCC) HEMOGLOBIN A1C Routine 07/12/2024 7:25 AM TOURIST CABIN KEEPER Type 2 diabetes mellitus without complication, without long-term current use of insulin (HCC) ALBUMIN CREATININE RATIO, URINE Routine 07/12/2024 7:25 AM TOURIST CABIN KEEPER Type 2 diabetes mellitus without complication, without [...] AM CDT Narrative 10/24/2024 7:22 PM CDT [facility] - Department of Vascular Surgery, Vascular Laboratory [address] [place] [address] Carotid Duplex Ultrasound Report Patient Name: ERNST LIMA : 1955 (69y 8m) Study Date: 10/24/2024 9:58:36 AM Gender: M Tech: IA Location: [facility] Ref Provider: DEVONTE STORY Quality: Adequate Order [...] LT VERT PSV 42 cm/sec FINDINGS: Performing Electromatic Typist: Caren Wagner RVT. Rt Common Carotid Artery: [...] Procedure Note Kailash Islas MD - 10/24/2024 [facility] - Department of Vascular Surgery,Vascular Laboratory [address] [place] [id number] Carotid Duplex Ultrasound Report Patient Name: ERNST LIMA : 1955 (69y 8m) Study Date: 10/24/2024 9:58:36 AM Gender: M Tech: [place] Location: [facility] Ref Provider: DEVONTE STORY Quality: Adequate Order [...] LT VERT PSV 42 cm/sec FINDINGS: Performing Electromatic Typist: Caren Wagner RVT. Rt Common Carotid Artery: [...] Islas MD FACS 10/24/2024 7:21:51 PM CDT us Devonte Story NP IMG US PROCEDURES Final Result * US Arterial Doppler Lower Extremity Bilateral (10/24/2024 11:44 AM CDT) Anatomical Region Laterality Modality Vascular Bilateral Ultrasound 10/24/2024 10:2 1 AM CDT Narrative 10/24/2024 7:19 PM CDT [facility] - Department of Vascular Surgery, Vascular Laboratory [address] [place] [address] Lower Extremity Arterial Doppler Report Patient Name: ERNST LIMA : 1955 Study Date: 10/24/2024 10:21:00 AM Gender: M Tech: Caren Wagner RVT Location: [facility] Provider: DEVONTE STORY Quality: Adequate Order Provider: DEVONTE STORY PROCEDURES: Arterial Report: Bilateral lower extremity arterial Doppler exam at rest. INDICATIONS: I70.213 Atherosclerosis of [place] arteries of extremities with intermittent claudication, bilateral legs. MEASUREMENTS: Right Value Units Left Value Units Rt Brachial Pressure 153 mmHg Lt Brachial Pressure 153 mmHg Rt CAR SUPPLIER Pressure 127 mmHg Lt CAR SUPPLIER Pressure 138 mmHg Rt DPA Pressure 122 mmHg Lt DPA Pressure 138 mmHg Rt 1st Digit Pressure 118 mmHg Lt 1st Digit Pressure 110 mmHg Rt PT COLIN Resting 0.83 Lt PT COLIN Resting 0.9 Rt AT COLIN Resting 0.8 Lt AT COLIN Resting 0.9 Rt Digit/Arm Index 0.77 Lt Digit/Arm Index 0.72 Right Value Units Left Value Units FINDINGS: Performing Electromatic Typist: Caren Wagner RVT. Right All Levels: The [...] Procedure Note Kailash Islas MD - 10/24/2024 [facility] - Department of Vascular Surgery,Vascular Laboratory [address] [place] [address] Lower Extremity Arterial Doppler Report Patient Name: ERNST LIMA : 1955 Study Date: 10/24/2024 10:21:00 AM Gender: M Tech: Caren Wagner RVT Location: [facility] Provider: DEVONTE TSORY Quality: Adequate Order Provider: DEVONTE STORY PROCEDURES: Arterial Report: Bilateral lower extremity arterial Doppler exam at rest. INDICATIONS: I70.213 Atherosclerosis of [place] arteries of extremities withintermittent claudication, bilateral legs. MEASUREMENTS: Right Value Units Left Value Units Rt Brachial Pressure 153 mmHg Lt Brachial Pressure 153 mmHg Rt CAR SUPPLIER Pressure 127 mmHg Lt CAR SUPPLIER Pressure 138 mmHg Rt DPA Pressure 122 mmHg Lt DPA Pressure 138 mmHg Rt 1st Digit Pressure 118 mmHg Lt 1st Digit Pressure 110 mmHg Rt PT COLIN Resting 0.83 Lt PT COLIN Resting 0.9 Rt AT COLIN Resting 0.8 Lt AT COLIN Resting 0.9 Rt Digit/Arm Index 0.77 Lt Digit/Arm Index 0.72 Right Value Units Left Value Units FINDINGS: Performing Electromatic Typist: Caren Wagner RVT. Right All Levels: The [...] Signed By: Kailash Islas MD, FACS 10/24/2024 7:19:20 PM CDT us Devonte Story NP IMG [...] Normal kidneys. No hydronephrosis. Dictated by: Raisa Becerrli MD, MPH The radiology attending physician has personally reviewed this study, and had reviewed and/or edited this written report and agrees with it. Electronically signed by: Gavin Iglesias M.D. Devonte Story NP IMG US PROCEDURES Final Result * Albumin Creatinine Ratio, Urine (07/12/2024 7:25 AM TOURIST CABIN KEEPER) Creatinine, ur 113 20 - 320 mg/dL [...] a diagnostic category. Urine 07/12/2024 7:25 AM TOURIST CABIN KEEPER 07/12/2024 7:25 AM TOURIST CABIN KEEPER Skyla Millan NP LAB URINE ORDERABLES Final Re sult [facility] [address] [place] [address] * (ABNORMAL) Hemoglobin A1c (07/12/2024 7:25 AM TOURIST CABIN KEEPER) Hgb A1C 6.7(H) <5.7 % of total [...] diabetes for children. Blood 07/12/2024 7:25 AM TOURIST CABIN KEEPER 07/12/2024 7:25 AM TOURIST CABIN KEEPER us Skyla Millan NP LAB BLOOD ORDERABLES Final Re sult [facility] [address] [place] [address] * (ABNORMAL) Comprehensive metabolic panel (07/12/2024 7:25 AM TOURIST CABIN KEEPER) Glucose 137(H) 65 - 99 mg/dL [facility] [...] [facility] Blood 07/12/2024 7:25 AM TOURIST CABIN KEEPER 07/12/2024 7:25 AM TOURIST CABIN KEEPER Skyla Millan FOLDER INSPECTOR LAB BLOOD ORDERABLES Final Re sult Performing Organization Address [facility] de Phone Number [facility] [address] [place] [address] * PSA screen (12/30/2023 10:16 AM CDT) PSA 0.56 < OR = 4.00 ng/mL [facility] Comment: The total PSA value from this assay system is standardized against the WHO standard. The test result will be approximately 20% lower when compared to the equimolar-standardized total PSA (Nadia Orlando). Comparison of serial PSA results should be [...] CDT FASTING:YES FASTING: YES us Skyla Millan FOLDER INSPECTOR LAB BLOOD ORDERABLES Final Re sult Performing Organization Address [facility] de Phone Number [facility] [address] [place] [address] * Lipid panel (12/30/2023 10:16 AM CDT) [...] equation in the estimation of LDL-C. Tab SS et al. PAPA. 2013;310(19): 4129-2438 (http://education.Protochips/faq/QSM136) Chol/HDL ratio 2.4 <5.0 (calc) [facility] Non-HDL, (LDL+VLDL) 59 <130 mg/dL (calc) [facility] Comment: For patients with diabetes plus 1 major ASCVD risk factor, treating to a non-HDL-C goal of <100 mg/dL (LDL-C of <70 mg/dL) is considered a therapeutic option. Blood 12/30/2023 10:1 6 AM CDT 12/30/2023 10:18 AM CDT Narrative [facility] - 12/31/2023 8:03 AM CDT FASTING:YES FASTING: YES Skyla Millan FOLDER INSPECTOR LAB BLOOD ORDERABLES Final Re sult [facility] [address] [facility] [place] [address] * COLONOSCOPY (09/12/2022 4:43 PM CDT) Anatomical Region Laterality Modality Other Narrative Procedure Note Rafa Enriquez MD - 09/12/2022 4:43 PM CDT [facility] Patient Name: Ernst Lima Procedure Date: 09/12/2022 4:43 PM Date of : 1955 Admit Type: Outpatient Age: 67 Gender: Male Attending MD: Rafa Enriquez M.D. Room: [facility] 8 Note Status: Finalized Procedure: [...] The scope was passed under direct vision.The [id number] endoscope was introduced through the anus [...] On: 09/12/2022 4:43 PM Recognized by the [place] [employer] for promoting quality in endoscopy us Rafa Enriquez MD ENDOSCOPY PROCEDURES Final Resul t from Last 3 Months or Most Recently Relevant to Health Maintenance Insurance [employer] PPO [employer] [place] [address] ADVANTAGE CHOICE PPO [employer] [address] ADVANTAGE CHOICE PPO * Guarantor: ERNST LIMA Account Type Relation to Patient Date of Phone Billing Address Personal/Family [address] ADVANTAGE CHOICE PPO Advance Directives For more information, please contact: [phone] * Full Code (Latest Code Status on File) Date Activated Date Inactivated Comments 09/12/2022 2:29 PM 09/12/2022 9:57 PM Care Teams Personal Financial Planner Relationship Specialty Start Date End Date Neal So MD PCP - General Internal Medicine 06/29/20 Tamica Santana, kier operator Failure Coordinator 04/20/24
== END 2025-01-05 13:09 | disposition home or self-care (01) ==
PROVIDERS: PCP Internal Medicine; Visit Provider Internal Medicine
DX: M25.512 Pain in left shoulder (principal); M19.012 Primary osteoarthritis, left shoulder; M65.812 Other synovitis and tenosynovitis, left shoulder
CPT/HCPCS: 73030

== ENCOUNTER 2025-05-09 15:03 | Outpatient (CLI) | payer OTHER, SELFPAY ==
--- NOTE | ~2025-05-09 | MR_ITS ---
EXAMINATION: MRI left shoulder without contrast: DATE: 05/09/2025 INDICATION: 70-year-old with left shoulder pain. No history of left shoulder surgery. TECHNIQUE: Axial, oblique coronal, oblique sagittal MRI images were obtained as per protocol.. COMPARISON: Radiograph left shoulder dated 01/05/2025. FINDINGS: No acute bony lesions at the left shoulder. Significant tendinitis of the distal supraspinatus tendon is noted with intrasubstance partial-thickness tear and calcific tendinitis of the distal supraspinatus. No evidence of full-thickness rotator cuff tear is seen. Hook-shaped acromion process is impinging on the subacromion space and the supraspinatus tendon. Small effusion in the subacromion bursa is noted. No evidence of displaced labral tear. Para labral cysts are noted measuring up to 8 mm in diameter in the inferior lip of the labrum. Biceps tendon is intact. IMPRESSION: 1. No acute bony lesions at the left shoulder. 2. Hook-shaped acromion process is impinging on the subacromion space and the supraspinatus. 3. Significant distal supraspinatus tendinitis with calcific changes and intrasubstance partial thickness tear of distal supraspinatus tendon. 4. Degenerative changes with para labral cysts of the inferior lip of the glenoid labrum as described above. No evidence of displaced labral tear. Reviewed, dictated and finalized at location T. RONMENTAL PLANNING ENGINEER IMPRESSION: 1. No acute bony lesions at the left shoulder. 2. Hook-shaped acromion process is impinging on the subacromion space and the s upraspinatus. 3. Significant distal supraspinatus tendinitis with calcific changes and intras ubstance partial thickness tear of distal supraspinatus tendon. 4. Degenerative changes with para labral cysts of the inferior lip of the gleno id labrum as described above. No evidence of displaced labral tear.
== END 2025-05-09 15:04 | disposition home or self-care (01) ==
PROVIDERS: PCP Internal Medicine; Visit Provider Orthopaedic Surgery
DX: M75.82 Other shoulder lesions, left shoulder (principal); S43.432A Superior glenoid labrum lesion of left shoulder, initial encounter; M67.814 Other specified disorders of tendon, left shoulder; M75.112 Incomplete rotator cuff tear or rupture of left shoulder, not specified as traumatic; M19.012 Primary osteoarthritis, left shoulder; X58.XXXA Exposure to other specified factors, initial encounter
CPT/HCPCS: 73221